=== PATIENT | female | born 1955 | race Caucasian/White ===

== ENCOUNTER 2016-07-26 12:27 | Emergency (ER) | payer OTHER ==
[~2016-07-26] VITALS: Ht 162.6 cm; Wt 68.5 kg
[2016-07-26 13:08] VITALS: Ht 162.6 cm; Wt 68.5 kg
[2016-07-26] MEDS ORDERED: SOD CHLORIDE 0.9% 500 ML IV STA (17:05)
[2016-07-26] MEDS ORDERED: morphine 4 MG/ML VIAL IV STA (17:05)
[2016-07-26] MEDS ORDERED: ONDANSETRON 4 MG INJ IV STA (17:05)
--- NOTE | 2016-07-26 17:09 | ERD ---
ER Documentation Chief Complaint Date/Time DATE: 07/26/16 TIME: 17:05 Chief Complaint Pt with AP, diarrhea and vomiting since yesterday. HPI 60-year-old female. History of borderline hyperlipidemia. The patient describes approximately 1 week of symptoms were worse over the past 48 hours. This includes nonbloody nonbilious emesis, loose watery stools and lower abdominal pain that slightly radiates to the right lower quadrant. Pain is moderate. No fevers, travel, sick contacts or antibiotics. ROS All systems reviewed and are negative except as per history of present illness. Medications Home Meds Active Scripts Dicyclomine Hcl* (Bentyl*) 10 Mg Capsule, 10 MG PO QID Y for abdominal cramping , #20 CAP Prov:NATALYA PINEDO MD 07/26/16 Ondansetron (Ondansetron Odt) 4 Mg Tab.rapdis, 4 MG PO Q6H Y for NAUSEA AND/OR VOMITING, #10 TAB Prov:NATALYA PINEDO MD 07/26/16 Allergies Allergies: Coded Allergies: No Known Allergy (Unverified , 07/26/16) PMhx/Soc Hx Alcohol Use: No Hx Substance Use: No Hx Tobacco Use: No FmHx Family History: No diabetes Physical Exam Vitals Vital Signs Date Time Temp Pulse Resp B/P Pulse Ox O2 Delivery O2 Flow Rate FiO2 07/26/16 19:03 76 18 115/80 100 Room Air 07/26/16 18:33 97.8 78 16 107/82 98 Room Air 07/26/16 13:08 98.0 88 18 112/78 95 Physical Exam General: Well developed, well nourished, no acute distress Head: Normocephalic, atraumatic. Eyes: Pupils equally reactive, EOM intact ENT: Moist mucous membranes Neck: Supple, no lymphadenopathy Respiratory: Lungs clear bilaterally, no distress Cardiovascular: RRR, no murmurs, rubs, or gallops Abdominal: Soft, mild focal tenderness of the right lower quadrant that is inconsistent, no pulsatile mass : Deferred MSK: No edema, no unilateral swelling, 5/5 strength Neurologic: Alert and oriented, moving all extremities, normal speech, no focal weakness, no cerebellar signs Skin: No rash Psych: Normal mood Result Diagram: 07/26/16 1720 07/26/16 1720 Results 24 hrs Laboratory Tests Test 07/26/16 17:20 Alanine Aminotransferase (ALT/SGPT) 81IU/L Albumin 4.5g/dl Albumin/Globulin Ratio 1.12 Alkaline Phosphatase 90IU/L Anion Gap 16 Aspartate Amino Transf (AST/SGOT) 40IU/L Basophils # 0.010^3/ul Basophils % 0.3% Blood Morphology Comment Blood Urea Nitrogen 11mg/dl Calcium Level 10.1mg/dl Carbon Dioxide Level 27mmol/L Chloride Level 103mmol/L Creatinine 0.58mg/dl Direct Bilirubin 0.00mg/dl Eosinophils # 0.210^3/ul Eosinophils % 1.8% Globulin 4.00g/dl Glucose Level 105mg/dl Hematocrit 39.7% Hemoglobin 13.2g/dl Indirect Bilirubin 0.2mg/dl Lipase 150U/L Lymphocytes # 2.710^3/ul Lymphocytes % 26.2% Mean Corpuscular Hemoglobin 26.6pg Mean Corpuscular Hemoglobin Concent 33.2g/dl Mean Corpuscular Volume 80.0fl Mean Platelet Volume 7.8fl Monocytes # 0.810^3/ul Monocytes % 7.8% Neutrophils # 6.510^3/ul Neutrophils % 63.9% Nucleated Red Blood Cells # 0.010^3/ul Nucleated Red Blood Cells % 0.0/100WBC Platelet Count 60607^3/UL Potassium Level 4.0mmol/L Red Blood Count 4.9610^6/ul Red Cell Distribution Width 13.1% Sodium Level 142mmol/L Total Bilirubin 0.2mg/dl Total Protein 8.5g/dl Urine Bilirubin NEGATIVE Urine Clarity CLEAR Urine Color LT. YELLOW Urine Glucose NEGATIVE% Urine Hemoglobin NEGATIVE Urine Ketones NEGATIVE Urine Leukocyte Esterase NEGATIVE Urine Nitrite NEGATIVE Urine Specific Marshall 1.010 Urine Total Protein NEGATIVE Urine Urobilinogen 0.2 E.U./dL Urine pH 5.5 White Blood Count 10.110^3/ul Current Medications Medications (Trade) Dose Ordered Sig/Jose Route PRN Reason Start Time Stop Time Status Last Admin Dose Admin Sodium Chloride (NS) 500 ml @ 500 mls/hr Q1H STAT IV 07/26/16 17:05 07/26/16 18:04 DC 07/26/16 17:22 Morphine Sulfate (morphine) 4 mg ONCE STAT IV 07/26/16 17:05 07/26/16 17:06 DC 07/26/16 17:22 Ondansetron HCl (Zofran Inj) 4 mg ONCE STAT IV 07/26/16 17:05 07/26/16 17:06 DC 07/26/16 17:22 Procedures/MDM EKG, MONITORS, & DIAGNOSTIC IMAGING: CT abdomen and pelvis: IMPRESSION: 1. Mild nonspecific small bowel ileus. 2. Mild fatty infiltration of the liver. RPTAT: [facility] LAB INTERPRETATION: No significant leukocytosis. MEDICAL DECISION MAKING: The patient's symptoms are possibly consistent with viral process given vomiting and diarrhea. However, she does have focal tenderness the right lower quadrant. While this is inconsistent and could represent acute appendicitis. Timing does not make sense for this but given the patient's age CT imaging would be appropriate. ER COURSE: The patient has improved symptoms. The CT is read as possible ileus however the patient does not clinically have an ileus. The patient is passing stool. No evidence of small bowel obstruction. The patient is tolerating oral intake. No indication for hospitalization as the risks outweigh the benefits. I discussed routine management as well as nausea medication, oral hydration. Return precautions including worsening pain, decreased bowel movements. Repeat abdominal exam is benign. I kept the patient and/or family informed of laboratory and diagnostic imaging results throughout the emergency room course. DISPOSITION PLAN: We discussed follow up with the patient's primary care doctor within 24 to 48 hours as needed. We also discussed return to the emergency room for worsening symptoms or worsening condition. Discharge Medications: Zofran, Bentyl Departure Diagnosis: Primary Impression: Nausea vomiting and diarrhea Additional Impression: Abdominal pain Abdominal location: generalized Qualified Code: R10.84 - Generalized abdominal pain Condition: Stable NATALYA PINEDO MD Jul 26, 2016 17:09
[2016-07-26 17:36] LABS: BASOPHILS % 0.3 % (0.0-2.0); EOSINOPHILS # 0.2 10^3/ul (0.0-0.5); EOSINOPHILS % 1.8 % (0.0-7.0); HEMATOCRIT 39.7 % (37.0-47.0); HEMOGLOBIN 13.2 g/dl (12.0-16.0); LYMPHOCYTES # 2.7 10^3/ul (0.8-2.9); LYMPHOCYTES % 26.2 % (15.0-51.0); MEAN CORPUSCULAR HEMOGLOBIN 26.6 pg (29.0-33.0); MEAN CORPUSCULAR HGB CONC 33.2 g/dl (32.0-37.0); MEAN PLATELET VOLUME 7.8 fl (7.4-10.4); MONOCYTE # 0.8 10^3/ul (0.3-0.9); MONOCYTES % 7.8 % (0.0-11.0); NEUTROPHIL # 6.5 10^3/ul (1.6-7.5); NEUTROPHILS % 63.9 % (39.0-77.0); PLATELET COUNT 271 10^3/UL (140-440); RED BLOOD COUNT 4.96 10^6/ul (4.20-5.40); RED CELL DISTRIBUTION WIDTH 13.1 % (11.5-14.5); UNCORRECTED WBC 10.1 10^3/ul (4.8-10.8); WHITE BLOOD COUNT 10.1 10^3/ul (4.8-10.8)
[2016-07-26 17:41] LABS: CONDITION 1; LH ANALYZER COMMENTS 1
[2016-07-26 17:45] LABS: ALBUMIN 4.5 g/dl (3.3-4.9)
[2016-07-26 17:48] LABS: ALBUMIN/GLOBULIN RATIO 1.12; BILIRUBIN,INDIRECT 0.2 mg/dl (0-1.1); BILIRUBIN,TOTAL 0.2 mg/dl (0.2-1.3); CREATININE 0.58 mg/dl (0.44-1.00); TOTAL PROTEIN 8.5 g/dl (6.1-8.1)
[2016-07-26 17:49] LABS: CALCIUM 10.1 mg/dl (8.4-10.2)
[2016-07-26 17:53] LABS: ADD UMIC NO; URINE BILIRUBIN (Dip) NEGATIVE (NEGATIVE); URINE BLOOD (Dip) NEGATIVE (NEGATIVE); URINE COLOR LT. YELLOW (YELLOW); URINE GLUCOSE (Dip) NEGATIVE (NEGATIVE); URINE KETONES (Dip) NEGATIVE (NEGATIVE); URINE LEUKOCYTE ESTERASE (Dip) NEGATIVE (NEGATIVE); URINE NITRITE (Dip) NEGATIVE (NEGATIVE); URINE TOTAL PROTEIN (Dip) NEGATIVE (NEGATIVE); URINE UROBILINOGEN (Dip) 0.2 E.U./dL (0.1-1.0)
--- NOTE | 2016-07-26 20:08 | RADRPT ---
PROCEDURE: CT abdomen and pelvis with. contrast. CLINICAL INDICATION: Abdominal pain. TECHNIQUE: Noncontrast CT examination of the abdomen and pelvis, with axial, sagittal and coronal reformatted images. CTDI: 12.89 mGy and DLP: 695.12 mGy-cm. COMPARISON: None. FINDINGS: CT abdomen: The lung bases are clear. The heart size is normal, without pericardial thickening or effusion. Mild low noncontrast attenuation of the liver is compatible with a degree of fatty infiltration, oth erwise, there is no evident intrahepatic biliary dilatation or mass. The spleen is normal in size a nd homogeneous in density. The stomach is partially collapsed, but is grossly unremarkable. The pa ncreas as visualized is normal. The gallbladder and biliary tree are unremarkable and there is no e vidence for biliary dilatation. The adrenal glands are symmetric and normal. The kidneys are symme trically unremarkable as well. 1 mm nonobstructing calculus at mid pole right kidney, and otherwise there is no evident obstructing renal calculus or mass. The aorta is of normal caliber. Aortic vascular calcifications are present. There is no retroperit wooten lymphadenopathy. The edyta hepatis region is clear. Nonspecific mild small bowel ileus. Bowel and mesentery otherwise substantially unremarkable. CT pelvis: Mild nonspecific small bowel ileus. The pelvic organs are normal. The pelvic sidewalls and inguina l regions are clear. The sigmoid colon and rectum are all unremarkable. No mass, lymphadenopathy, or free fluid is seen. No acute inflammation is seen. The appendix is unremarkable. The surrounding osseous structures are remarkable for mild degenerative spondylosis of the spine. N o osteolytic or osteoblastic lesion is detected. IMPRESSION: 1. Mild nonspecific small bowel ileus. 2. Mild fatty infiltration of the liver. RPTAT: [facility] Physician Rancho Date Time Electronically viewed and signed by Physician Rancho on 07/26/2016 20:08 RS/
[2016-07-26] MEDS ORDERED: ONDA4TAB14 PO (20:29)
[2016-07-26] MEDS ORDERED: DICY10CA60 PO (20:29)
[2016-07-26 20:37] VITALS: BP 116/71; PULSE 68; RESP 17; TEMP 98.4
== END 2016-07-26 20:38 | disposition home or self-care (01) ==
LOC: E/R 12:27
DX: R11.2 Nausea with vomiting, unspecified (principal); R10.84 Generalized abdominal pain
CPT/HCPCS: 36415; 74176; 80053; 81003; 83690; 85025; 96374; 96375; J2270; J2405; J7040; Z7502